=== PATIENT | female | born 1945 | race Two or more races ===

== ENCOUNTER 2020-01-01 11:59 | Day surgery (SDC) | payer MEDICARE, BC ==
--- NOTE | 2019-12-31 21:17 | Pre-Procedure Note/Attestation ---
Pre-Procedure Note/Attestation Complete Prior to Procedure Planned Procedure: left Procedure Narrative: Rebubbling of DSEK graft, left eye Indications for Procedure Pre-Operative Diagnosis: Wound dehiscence DSEK graft left eye Attestation I attest that I discussed the nature of the procedure; its benefits; risks and complications; and alternatives (and the risks and benefits of such alternatives ), prior to the procedure, with the patient (or the patient's legal retail customer service representative). I attest that, if there was a reasonable possibility of needing a blood transfusion, the patient (or the patient's legal retail customer service representative) was given the [facility] standardized written summary, pursuant to the Georges Emery Blood Safety Act ([place] Health and Safety Code # 1645, as amended). I attest that I re-evaluated the patient just prior to the surgery and that there has been no change in the patient's H&P, except as documented below: Ming Zimmerman MD Dec 31, 2019 21:17
[2020-01-01] VITALS (9 sets, daily range): BP systolic 131–158; BP diastolic 76–95
[~2020-01-01] VITALS: Ht 167.6 cm; Wt 93.0 kg
[~2020-01-01 11:59] MED LIST: AMLODIPINE BESY10 MG ORAL; LOSARTAN POTASS50 MG ORAL
[2020-01-01] MEDS ORDERED: Ciprofloxacin Opth Soln 5ml ONE (12:11)
[2020-01-01] MEDS ORDERED: timoloL maleate 0.5% Op Soln 2.5ml ONE (12:11)
[2020-01-01] MEDS ORDERED: Povidone-Iodine 5% opth solution ONE (12:11)
[2020-01-01] MEDS ORDERED: Lidocaine 1% MPF 10mg/ml 5ml ONE (12:11)
[2020-01-01] MEDS ORDERED: Tetracaine 0.5% Opth 4ml Soln ONE (12:11)
[2020-01-01] MEDS ORDERED: Polysporin Opth Oint 3.5gm ONE (12:11)
[2020-01-01] MEDS ORDERED: prednisoLONE acetate 1% Opth Susp 1ml ONE (12:11)
[2020-01-01] MEDS ORDERED: Acetylcholine Injection (OR) ONE (12:11)
[2020-01-01] MEDS ORDERED: Akten 3.5% 1ml Btl ONE (13:29)
[2020-01-01] MEDS ORDERED: Tobradex Opth Susp 2.5ml ONE (13:30)
[2020-01-01] MEDS ORDERED: Vigamox Opth Soln 3ml ONE (13:30)
[2020-01-01] MEDS: Vigamox Opth Soln 3ml LEFT EYE SCH ×3 (13:32→13:42)
[2020-01-01] MEDS: Tobradex Opth Susp 2.5ml LEFT EYE SCH ×3 (13:32→13:43)
[2020-01-01] MEDS: Akten 3.5% 1ml Btl LEFT EYE SCH ×3 (13:32→13:44)
[2020-01-01] MEDS ORDERED: fentaNYL 100 mcg/2 mL IV ONE (14:54)
[2020-01-01] MEDS ORDERED: Midazolam 2mg/2ml Inj ONE ×2 (14:54→15:06)
[2020-01-01] MEDS ORDERED: LR 1000ml ONE (15:00)
[2020-01-01] MEDS ORDERED: Sterile Water Irrig 1000ml IRRIG ONE (15:00)
[2020-01-01] MEDS ORDERED: NS Irrig 1000ml ONE (15:00)
[2020-01-01] MEDS ORDERED: BSS 15ml BTL ONE (15:20)
[2020-01-01] MEDS ORDERED: Fluorescein Strips ONE (15:37)
[2020-01-01] MEDS ORDERED: acetaZOLAMIDE 500mg Inj ONE (15:40)
--- NOTE | 2020-01-01 15:49 | Discharge Instructions ---
Discharge Instructions Discharge Instructions Follow Up Orders Wear eye shield at all times except to place eye drops Continue preop eye drops Lie flat on back for [address] Zimmerman's office tomorrow For Congestive Heart Failure Reminder Report to your physician any weight gain of 5 pounds or more in one week. Ming Zimmerman MD Jan 01, 2020 15:49
--- NOTE | 2020-01-01 15:52 | Brief Operative Note ---
Immediate Post Operative Note Operative Note Pre-op Diagnosis: Wound dehiscence DSEK graft left eye Procedure: Repair of wound dehiscence DSEK graft, left eye (rebubbling) Post-op Diagnosis: Wound dehiscence DSEK graft, left eye Post-op Diagnosis: same as pre-op Surgeon: Haile Zimmerman MD MS Anesthesiologist: Glenny Wynn Anesthesia: local, MAC Specimen: none Complications: none Fluids: see chart Estimated Blood Loss: none Implant(s) used?: No Ming Zimmerman MD Jan 01, 2020 15:52
--- NOTE | 2020-01-01 15:53 | Immediate Post-Op Evaluation ---
Immediate Post-Op Evalulation Immediate Post-Op Evalulation Procedure: left eye wound dehiscence repair Date of Evaluation: Jan 01, 2020 Time of Evaluation: 15:50 IV Fluids: 500 Blood Pressure Systolic: 144 Blood Pressure Diastolic: 60 Pulse Rate: 70 Respiratory Rate: 14 O2 Sat by Pulse Oximetry: 99 Temperature (Fahrenheit): 97.5 Nausea: No Vomiting: No Complications none Patient Status: awake, reacts, patent Hydration Status: adequate Drug: none Glenny Wynn CRNA Jan 01, 2020 15:53
--- NOTE | 2020-01-01 15:54 | Anethesia Preoperative Eval ---
Anesthesia Pre-op PMH/ROS General Date of Evaluation: Jan 01, 2020 Time of Evaluation: 15:00 Anesthesiologist: vincent ASA Score: ASA 2 Mallampati Score Class I : Soft palate, uvula, fauces, pillars visible Class II: Soft palate, uvula, fauces visible Class III: Soft palate, base of uvula visible Class IV: Only hard plate visible Mallampati Classification: Class II Surgeon: Elsie Diagnosis: wound dehis Surgical Procedure: left eye wound dehiscence repair Anesthesia History: none Family History: no anesthesia problems Allergies: Coded Allergies: No Known Allergies (Unverified , 12/31/19) Medications: see eMAR Patient NPO?: Yes NPO Date: Jan 01, 2020 NPO Time: 00:01 Past Medical History Cardiovascular: Reports: HTN; Denies: CAD, [place], valve dz, arrhythmia, other Pulmonary: Denies: asthma, COPD, JUANITO, other Gastrointestinal/Genitourinary: Denies: GERD, CRI, ESRD, other Neurologic/Psychiatric: Denies: dementia, CVA, depression/anxiety, TIA, other Endocrine: Denies: DM, hypothyroidism, steroids, other HEENT: Denies: cataract (L), cataract (R), glaucoma, [place] (L), [place] (R), other Hematology/Immune: Denies: anemia, DVT, bleeding disorder, other Musculoskeletal/Integumentary: Denies: OA, RA, DJD, DDD, edema, other Anesthesia Pre-op Phys. Exam Physician Exam Last Vital Signs Date Time Temp Pulse Resp B/P (MAP) Pulse Ox O2 Delivery O2 Flow Rate FiO2 01/01/20 12:45 98.1 94 16 158/95 99 Room Air Constitutional: NAD Neurologic: CN 2-12 intact Cardiovascular: RRR Respiratory: CTA Gastrointestinal: S/NT/ND Airway Exam Mallampati Score: Class II MO: full ROM: full Dentures: no upper, no lower Anesthesia Pre-op A/P Studies Pre-op Studies: EKG - sr Risk Assessment & Plan Plan: mac Pre-Antibiotics Drug: declined Glenny Wynn CRNA Jan 01, 2020 15:54
[2020-01-01] MEDS ORDERED: fentaNYL 100 mcg/2 mL IV PRN (16:00)
--- NOTE | 2020-01-01 16:06 | 48 Hour Post Anesthesia Eval ---
Post Anesthesia Evaluation Procedure: left eye wound dehiscence repair Date of Evaluation: Jan 01, 2020 Time of Evaluation: 16:06 Blood Pressure Systolic: 131 0: 78 Pulse Rate: 76 Respiratory Rate: 14 O2 Sat by Pulse Oximetry: 98 Airway: patent Nausea: No Vomiting: No Hydration Status: adequate Cardiopulmonary Status: stable Mental Status/LOC: patient returned to baseline Post-Anesthesia Complications: none Follow-up care needed: N/A Glenny Wynn CRNA Jan 01, 2020 16:06
--- NOTE | 2020-01-01 19:00 | Pre-op HX & Phy Repo 2 SIG ---
DATE OF ADMISSION: 01/01/2020 PRESURGICAL INTERNAL MEDICINE HISTORY AND PHYSICAL DATE OF EVALUATION: 01/01/2020 REASON FOR EVALUATION: I was asked by Dr. Ming Zimmerman to see this 74-year-old female who is going for elective surgery on the left eye. Patient has a wound in the left eye and is scheduled for revision of the wound, left eye procedure at [facility]. Patient was seen at outpatient procedure department. Patient is alert 74-year-old female, anxious. Chart was reviewed. PAST MEDICAL HISTORY/REVIEW OF SYSTEMS: Remarkable for hypertension, hyperlipidemia, mild, hyperglycemia, mild, no numbers. Patient has no history of stroke or seizures. Denies history of chest pain or palpitation. She does have two episodes of lightheadedness after small amount of alcohol lasting for about 30 seconds. No history of renal failure. Patient is overweight. She weighs 220 pounds and 5 feet 6 inches tall with BMI of 33.1 kg per meter square. No thyroid problem. No anemia. PAST SURGICAL HISTORY: Tonsillectomy in childhood, cataract surgery last week, and hand surgery in 1989 for osteoarthritis deformity. FAMILY HISTORY: Mother had hypertension and diabetes, at age 58 from cancer of unknown origin. Father from heart attack at the age of 46. Her brother also suddenly at the age of 45. ALLERGIES: Not known. PRESENT MEDICATIONS: Losartan 100 mg, amlodipine 10 mg, multivitamins, . HABITS: No history of smoking or alcohol habits. No street drugs. 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 PHYSICAL EXAMINATION: GENERAL: Patient is alert, anxious. VITAL SIGNS: Blood pressure 150/95, temperature 98.1, pulse 95, respirations 18, O2 saturation 99% on room air. SKIN: Dry, warm, clear. No rashes or diaphoresis. HEENT: Head, normocephalic and atraumatic. Ears, clear. Eyes, full description per Dr. Ming Zimmerman. Mouth, clear and moist. No dentures. NECK: Supple. No jugular vein distention. Carotids artery +2. Trachea midline. CHEST: No deformity or asymmetry. LUNGS: Clear to auscultation and percussion. No rales or rhonchi. HEART: Regular. No ectopy. No murmur. No S3 or S4. ABDOMEN: Soft. No palpable mass. No rebound. EXTREMITIES: No edema. No varices. Degenerative joint disease of knee. Right hand surgery in middle of the finger last year. GENITOURINARY: No dysuria. No CVA tenderness. NEUROLOGIC: No tremor. No nystagmus. Anxious. LABORATORY AND DIAGNOSTIC DATA: ECG from last week, normal sinus rhythm, 83 per minute, right bundle-branch block and mild left ventricular hypertrophy, dated 11/14/2019. Patient is NPO after midnight except for a sip of water with medication at 06:00 a.m. Lab work pending. Coronavirus negative. IMPRESSION: 1. Wound left eye. 2. Hypertension. 3. Anxious. 4. Hyperglycemia, no history. 5. Hyperlipidemia. 6. Obesity. BMI is 33.1. PLAN: Revision of the wound, left eye, per Dr. Ming Zimmerman. Patient is NPO and her condition is optimized for surgery. Letty Muller M.D. DR: PRETTY JOB#: [id number] CC:
--- NOTE | 2020-01-01 20:44 | Operative Note - Dictated ---
DATE OF OPERATION: 01/01/2020 SURGEON: Ming Zimmerman MD WOMEN'S MINISTRY DIRECTOR SURGEON: None. ANESTHESIOLOGIST: Glenny Wynn. ANESTHESIA: Local/standby/monitored anesthesia care. PREOPERATIVE DIAGNOSIS: Wound dehiscence of DSEK graft, left eye. POSTOPERATIVE DIAGNOSIS: Wound dehiscence of DSEK graft, left eye. PROCEDURES: 1. Repair of wound dehiscence, left eye. 2. Corneal wound dehiscence, left eye. SPECIMENS: None. COMPLICATIONS: None. INDICATIONS FOR SURGERY: The patient is status post cataract surgery with DSEK graft placement and the graft dislocated coming off the posterior surface of the patient's cornea. The patient understands the risks of surgery including infection, bleeding, need for further surgery, loss of vision, no improvement in vision, loss of the eye, loss of life, graft rejection, graft dehiscence, and understands these risks and elects to proceed with surgery. FINDINGS: The DSEK graft was totally detached from the patient's cornea. OPERATIVE NOTE: After informed consent was obtained, the patient was brought into the operating room and placed in supine position. Cardiac and respiratory monitors were attached. A time-out was performed and all criteria were met and everybody in the room agreed. The left eye was draped and prepped in sterile manner for ocular surgery. A paracentesis was made at approximately 1 o'clock and an air bubble was made to float the DSEK graft to the patient's posterior corneal surface. This was positioned with a reversed Sinskey hook. The anterior chamber was filled with 100% air fill for approximately 13 minutes. During this time, also the anterior surface of the cornea was stroked using a curved spatula to try remove any interface fluid. After approximately 13 minutes, air was partially removed from the anterior chamber of leaving approximately 8 mm air bubble. The wounds were checked and found to be watertight. The lid speculum and drapes were removed from the eye and drops of moxifloxacin, TobraDex and Pred Forte were applied to the eye followed by Maxitrol ointment and then a shield. The patient tolerated the procedure well and left the operating room awake, alert, and in stable condition. Ming Zimmerman M.D. DR: Bailee JOB#: [id number] CC:
== END 2020-01-01 17:20 | disposition home or self-care (01) ==
LOC: SUR 11:59
DX: T81.30XA Disruption of wound, unspecified, initial encounter (principal); I10 Essential (primary) hypertension; E78.5 Hyperlipidemia, unspecified; X58.XXXA Exposure to other specified factors, initial encounter; Y92.9 Unspecified place or not applicable
CPT/HCPCS: 66250; 94003; J1120; J2250; J2405; J3010; J7120; 94150